=== PATIENT | female | born 1955 | race African-American/Black ===

== ENCOUNTER → 2017-01-21 19:36 | Outpatient (CLI) | payer MEDICARE ==
[2014-04-15 09:11] VITALS: BMI 29.3
[~2017-01-21 19:36] MED LIST: ALEVE220 MG; ALEVE220 MG PO; CLONAZEPAM0.125 MG/T; HYZAAR 100-12.51 TAB PO; KLONOPIN0.5 MG PO; MICARDIS20 MG; PAXIL10 MG; PAXIL20 MG PO; PRAVACHOL20 MG; PRAVACHOL40 MG PO
== END | disposition home or self-care (01) ==
LOC: D.LABREF 19:36
PROVIDERS: Family Medicine
DX: M25.50 Pain in unspecified joint (principal)

== ENCOUNTER → 2017-10-17 10:39 | Outpatient (CLI) | payer MEDICARE ==
[2014-04-15 09:11] VITALS: BMI 29.3
[2017-10-17 11:33] LABS: % SATURATION 16 % (15-55); IRON 48 ug/dl (35-150); TOTAL IRON BIND CAPACITY 294 ug/dl (260-445); UNSAT IRON BIND CAPACITY 246 ug/dl (150-375)
[2017-10-17 11:50] LABS: ALBUMIN 3.6 g/dL (3.4-5.0); ANION GAP 10.1 mmol/L (8-16); BILIRUBIN - TOTAL 0.3 mg/dL (0.2-1.3); CARBON DIOXIDE 29.7 mmol/L (21.0-32.0); CREATININE - SERUM 0.9 mg/dL (0.6-1.3); POTASSIUM - SERUM 3.8 mmol/L (3.5-5.1); PROTEIN - SERUM 8.2 g/dL (6.4-8.2); T4 THYROXINE 7.8 ug/dL (4.7-13.3); THYROID STIMULATING HORMONE 1.98 uIU/mL (0.36-3.74)
== END | disposition home or self-care (01) ==
LOC: D.LAB 10:39
PROVIDERS: Internal Medicine Gastroenterology
DX: K59.00 Constipation, unspecified (principal); E11.9 Type 2 diabetes mellitus without complications

== ENCOUNTER 2018-06-20 00:33 | Emergency (ER) | payer MEDICARE ==
[~2018-06-20] VITALS: Ht 157.5 cm; Wt 69.1 kg
[2018-06-20 00:59] VITALS: Ht 157.5 cm; Wt 69.1 kg
[2018-06-20] MEDS ORDERED: RIOMET500 MG/5 M (01:03)
[2018-06-20] MEDS ORDERED: MIRALAX17 GM (01:03)
[2018-06-20] MEDS ORDERED: IBUPROFEN800 MG (01:04)
[2018-06-20 01:30] LABS: APPEARANCE CLEAR (CLEAR); BILIRUBIN NEGATIVE (NEGATIVE); COLOR YELLOW (YELLOW); GLUCOSE NEGATIVE (NEGATIVE); KETONE SMALL mg/dL (NEGATIVE); NITRITE NEGATIVE (NEGATIVE); PROTEIN NEGATIVE (NEGATIVE); SPECIFIC GRAVITY 1.025 (1.005-1.020); UROBILINOGEN NORMAL (NORMAL)
[2018-06-20 01:31] LABS: BASOPHILS 0.1 % (0-2); EOSINOPHILS 2.1 % (0-7); HEMATOCRIT 35.5 % (36.0-48.0); HEMOGLOBIN 11.7 g/dL (12-16); IMMATURE GRANULOCYTES 0.3 % (0-5); LYMPHOCYTES 12.7 % (15-50); MCH 28.5 pg (26.0-34.0); MCV 86.4 fL (80.0-100.0); MEAN PLATELET VOLUME 9.7 fL (7.4-10.4); MONOCYTES 4.3 % (2-11); NEUTROPHILS 80.5 % (40-80); PLATELET COUNT 385 10x3/uL (130-400); RBC 4.11 10x6/uL (4.00-5.40); RDW 13.4 % (11.5-14.5); WBC 7.2 10x3/uL (4.8-10.8)
[2018-06-20 01:41] LABS: ALBUMIN 3.5 g/dL (3.4-5.0); ANION GAP 6.7 mmol/L (8-16); BILIRUBIN - TOTAL 0.5 mg/dL (0.2-1.3); CREATININE - SERUM 0.9 mg/dL (0.6-1.3); POTASSIUM - SERUM 3.7 mmol/L (3.5-5.1); PROTEIN - SERUM 8.2 g/dL (6.4-8.2)
[2018-06-20] MEDS ORDERED: ZOFRAN ODT4 MG/UDTAB PO (02:17)
[2018-06-20] MEDS ORDERED: LOMOTIL TABLET1 TAB PO (02:17)
[2018-06-20 02:33] VITALS: BP 152/85
== END 2018-06-20 02:34 | disposition home or self-care (01) ==
LOC: D.ER 00:33
PROVIDERS: Family Medicine
DX: A08.4 Viral intestinal infection, unspecified (principal); E11.9 Type 2 diabetes mellitus without complications; I10 Essential (primary) hypertension; R19.7 Diarrhea, unspecified